=== PATIENT | female | born 1970 | race Caucasian/White ===

== ENCOUNTER 2020-02-19 20:24 | Emergency (ER) | payer MEDICAID, SELFPAY ==
[2020-02-19 20:31] VITALS: BP 181/84; PULSE 85; RESP 14; TEMP 37.1; O2SAT 98
--- NOTE | 2020-02-19 20:46 | ED.SKABFB ---
HPI - Skin/Abscess/Foreign Bdy General Chief complaint: Skin/Abscess/Foreign Body Stated complaint: RASH ALL OVER, ?FLEA BITES Time Seen by Provider: 02/19/20 20:46 Related Data Home Medications Medication Instructions Recorded Confirmed Unable to Obtain Home Medications 02/19/20 02/19/20 Allergies Allergy/AdvReac Type Severity Reaction Status Date / Time No Known Allergies Allergy Verified 02/19/20 20:35 Course Vital Signs Vital signs: Vital Signs Temperature 37.1 C 02/19/20 20:31 Pulse Rate 85 02/19/20 20:31 Respiratory Rate 14 02/19/20 20:31 Blood Pressure 181/84 H 02/19/20 20:31 Pulse Oximetry 98 02/19/20 20:31 Temperature 37.1 C 02/19/20 20:31 Pulse Rate 85 02/19/20 20:31 Respiratory Rate 14 02/19/20 20:31 Blood Pressure 181/84 H 02/19/20 20:31 Pulse Oximetry 98 02/19/20 20:31 Discharge Plan Discharge Prescriptions: No Action Unable to Obtain Home Medications RF: 0
--- NOTE | 2020-02-19 21:02 | ED.GENADULT ---
HPI - General Adult General Chief complaint: Skin/Abscess/Foreign Body <Junaid Ascencio PA-C - Last Filed: 02/19/20 21:06> Stated complaint: RASH ALL OVER, ?FLEA BITES <Junaid Ascencio PA-C - Last Filed: 02/19/20 21:06> Time Seen by Provider: 02/19/20 20:46 <Junaid Ascencio PA-C - Last Filed: 02/19/20 21:06> Source: patient <Junaid Ascencio PA-C - Last Filed: 02/19/20 21:06> Mode of arrival: ambulatory <Junaid Ascencio PA-C - Last Filed: 02/19/20 21:06> Limitations: no limitations <Junaid Ascencio PA-C - Last Filed: 02/19/20 21:06> History of Present Illness HPI narrative: Patient is a 49-year-old female who presents to emergency department for evaluation of rash that has been present now for 5 days was at her son's house who believes she may have gotten fleabites which started on the left arm but she has now spread to be more diffuse in nature with itching patient has tried topical preparations with no improvement. Patient denies allergic contact exposures or similar occurrence in the past and otherwise is in no distress upon arrival <Junaid Ascencio PA-C - Last Filed: 02/19/20 21:06> Related Data Allergies/adverse reactions: Allergies Allergy/AdvReac Type Severity Reaction Status Date / Time No Known Allergies Allergy Verified 02/19/20 20:35 <Junaid Ascencio PA-C - Last Filed: 02/19/20 21:06> Review of Systems Review of Systems: All systems reviewed & are unremarkable except as noted in HPI and below <Junaid Ascencio PA-C - Last Filed: 02/19/20 21:06> PMFSH Social History Social History: Social History (Updated 02/19/20 @ 21:03 by Junaid Ascencio PA-C) Smoking status: Never smoker <Junaid Ascencio PA-C - Last Filed: 02/19/20 21:06> Exam Narrative: Exam Narrative: GENERAL: Well-appearing, well-nourished, and in no acute distress. HEAD: Normocephalic, atraumatic. EYES: PERRLA and EOMI. ENT: Nares clear, no rhinorrhea or epistaxis. Mucous membranes moist. CHEST: Clear to auscultation. No respiratory distress. No wheezes rales or rhonchi HEART: Regular rate and rhythm. No murmur heard. EXTREMITIES: Normal range of motion. No edema. SKIN: Warm, dry, diffuse papular rash with excoriations NEURO: No focal deficits. Alert and oriented x3. PSYCH: Normal mood and affect. <Junaid Ascencio PA-C - Last Filed: 02/19/20 21:06> Course Course Emergency Course: Patient with rash of unknown etiology could be bug bites in nature advised to watch for worsening condition given reasons to return <Junaid Ascencio PA-C - Last Filed: 02/19/20 21:06> Vital Signs Vital signs: Vital Signs Temperature 37.1 C 02/19/20 20:31 Pulse Rate 85 02/19/20 20:31 Respiratory Rate 14 02/19/20 20:31 Blood Pressure 181/84 H 02/19/20 20:31 Pulse Oximetry 98 02/19/20 20:31 Temperature 37.1 C 02/19/20 20:31 Pulse Rate 85 02/19/20 20:31 Respiratory Rate 14 02/19/20 20:31 Blood Pressure 181/84 H 02/19/20 20:31 Pulse Oximetry 98 02/19/20 20:31 <Junaid Ascencio PA-C - Last Filed: 02/19/20 21:06> Vital Signs Temperature 37.1 C 02/19/20 20:31 Pulse Rate 85 02/19/20 20:31 Respiratory Rate 14 02/19/20 20:31 Blood Pressure 181/84 H 02/19/20 20:31 Pulse Oximetry 98 02/19/20 20:31 Temperature 37.1 C 02/19/20 20:31 Pulse Rate 85 02/19/20 20:31 Respiratory Rate 14 02/19/20 20:31 Blood Pressure 181/84 H 02/19/20 20:31 Pulse Oximetry 98 02/19/20 20:31 <Maame Nguyễn MD - Last Filed: 02/19/20 21:52> Medical Decision Making MDM Narrative Medical decision making narrative: Patient with rash of unknown etiology will be advised to follow with primary care given reasons to return felt appropriate for outpatient reevaluation <Junaid Ascencio PA-C - Last Filed: 02/19/20 21:06> Vital Signs Vital Signs: Vital Signs Temperature 37.1 C 02/19/20 20:31 Pulse Rate
[2020-02-19] MEDS: hydrOXYzine HCL 25 MG TABLET 50 MG PO (21:05)
[2020-02-19] MEDS: FAMOTIDINE 20 MG TABLET PO (21:05)
[2020-02-19] MEDS: predniSONE 20 MG TABLET 60 MG PO (21:05)
== END 2020-02-19 21:29 | disposition home or self-care (01) ==
PROVIDERS: Emergency Provider Emergency Medicine
DX: R21 Rash and other nonspecific skin eruption (principal)
CPT/HCPCS: 99283; A9270; J7512